=== PATIENT | female | born 1945 | race Caucasian/White ===

== ENCOUNTER 2016-07-18 07:22 | Emergency (ER) | payer MEDICARE ==
[~2016-07-18] VITALS: Ht 167.6 cm; Wt 75.9 kg
[2016-07-18 07:29] VITALS: BP 126/76; PULSE 72; RESP 16; TEMP 97.7; O2SAT 98
[2016-07-18] MEDS ORDERED: ACYC800T PO (07:55)
[2016-07-18] MEDS ORDERED: MEDR4PAK PO (07:55)
[2016-07-18] MEDS ORDERED: HYDR-3533 PO (07:55)
--- NOTE | 2016-07-18 07:56 | PD ---
HPI Chief Complaint: Skin Problem Time Seen by Provider: 07:49 Travel History International Travel<30 days: No Contact w/Intl Traveler<30days: No Traveled to known affect area: No History of Present Illness HPI 70-year-old female presents to the ER today with 1 week history of right thigh area rash that started on his own, she has been using antibiotics on it and she states that she has been having throbbing pain in the area. She denies any fevers, rash anywhere on his, or any other issues. She states that at first she thought that he may be secondary to exposure to weed killer which she had spilled on her right leg last week. Pain is currently an 8 out of 10. Modifying Factors: None Associated Signs & Symptoms: Right thigh area pain and rash Risk Factors: None PFSH Past Medical History High Cholesterol: Yes Tetanus Vaccination: > 5 Years Influenza Vaccination: Yes ?: Not Past Surgical History Appendectomy: Yes Hysterectomy: Yes Other Surgery: Yes (Bladder/uterus "tuck", hernia, rectum ) Social History Alcohol Use: No Tobacco Use: No Substance Use: No Allergies-Medications (Allergen,Severity, Reaction): Coded Allergies: Levaquin (Verified Allergy, Intermediate, GI UPSET, 07/18/16) Reported Meds & Prescriptions Reported Meds & Active Scripts Active No Active Prescriptions or Reported Medications Review of Systems Except as stated in HPI: all other systems reviewed are Neg Physical Exam Narrative GENERAL: Well-nourished, well-developed elderly white female patient in no acute distress. SKIN: Focused skin assessment warm/dry. There is a vesicular rash notable to the right inner thigh area with mild surrounding erythema but no underlying fluctuance. Mildly tender to palpation. HEAD: Normocephalic. EYES: No scleral icterus. No injection or drainage. NECK: Supple, trachea midline. No JVD or lymphadenopathy. CARDIOVASCULAR: Regular rate and rhythm without murmurs, gallops, or rubs. RESPIRATORY: Breath sounds equal bilaterally. No accessory muscle use. GASTROINTESTINAL: Abdomen soft, non-tender, nondistended. MUSCULOSKELETAL: No cyanosis, or edema. BACK: Nontender without obvious deformity. No CVA tenderness. Data Data Last Documented VS Vital Signs Date Time Temp Pulse Resp B/P Pulse Ox O2 Delivery O2 Flow Rate FiO2 07/18/16 07:45 07/18/16 07:29 97.7 72 16 98 MDM Medical Decision Making Medical Screen Exam Complete: Yes Emergency Medical Condition: Yes Medical Record Reviewed: Yes Differential Diagnosis Right thigh area rash/pain Narrative Course This appears to be a shingle-like rash with involvement of the right inner thigh area only. Patient states that it had also involved her right labia with a few vesicles in that area. At this point, it appears that the vesicles have already erupted and is in aphasic healing. There are no significant signs of superinfection. My plan would be to treat her shingles and have her follow-up as necessary with primary care physician. Return for any worsening in pain as needed or signs of infection as needed. The plan has been discussed with the patient and she states understanding. In addition, patient had requested cholesterol testing in the ER which I have notified her is not usually done in the ER although she can follow-up for further evaluation with her primary care physician. Diagnosis Primary Impression: Thigh shingles Med/Other Pt SpecificInfo: Prescription(s) given Scripts Hydrocodone-Acetaminophen (Lortab)5-325 Mg Tab1-2 Tab PO Q6H PRN (PAIN) #15 TAB Ref 0 Prov:Jonn Lamar MD 07/18/16 Acyclovir 800 Mg Oen428 Mg PO 5 TIMES A DAY 7 Days Ref 0 Prov:Jonn Lamar MD 07/18/16 Methylprednisolone Dosepak (Medrol Dosepak)4 Mg Dspk4 Mg PO DIRECTED #1 DSPK Ref 0 Per Pharmacist direction Prov:Jonn Lamar MD 07/18/16 Disposition: 01 DISCHARGE HOME Condition: Stable Jonn Lamar MD July 18, 2016 07:56
== END 2016-07-18 08:15 | disposition home or self-care (01) ==
LOC: PHED 07:22
DX: B02.8 Zoster with other complications (principal); E78.00 Pure hypercholesterolemia, unspecified
CPT/HCPCS: 99282